=== PATIENT | male | born 1945 | race Caucasian/White ===

== ENCOUNTER 2022-04-23 20:45 | Outpatient (CLI) | payer MEDICARE, BC, SELFPAY | END 2022-04-23 20:46 | disposition home or self-care (01) | LOC: AMB 04-27 17:53 | PROVIDERS: PCP Surgery; Visit Provider Family Medicine | DX: R41.82 Altered mental status, unspecified (principal) | CPT/HCPCS: A0998 ==

== ENCOUNTER 2022-05-04 14:15 | Outpatient (CLI) | payer MEDICARE, BC, SELFPAY ==
--- NOTE | 2022-05-04 14:30 | CRLHL7_ITS ---
For Patients: As a result of the Cures Act, medical imaging exams and procedure reports are released immediately into your electronic medical record. You may view this report before your referring provider. If you have questions, please contact your health care provider. INDICATION: Transient alteration of awareness. TECHNIQUE: Brain MRI without contrast. The following sequences were obtained: Sagittal T1 weighted sequence. DWI and ADC mapping sequences. Axial FLAIR and KRISTEL T2 weighted sequences. COMPARISON: Brain MRI from 04/15/2020. FINDINGS: No evidence of acute ischemia. No evidence of acute or chronic intracranial blood products. Scattered FLAIR hyperintensities throughout the supratentorial white matter, typical for chronic microvascular ischemic change. No mass effect or herniation. Prominence of the lateral/3rd ventricles, especially the atria/occipital horns. Slight effacement of the cerebral sulci at the vertex. Normal pressure hydrocephalus should be considered in the appropriate clinical setting. The pituitary gland, parasellar structures and optic chiasm are normal. Posterior fossa is normal. All the major intracranial vascular structures demonstrate normal flow-related signal. The orbital contents are normal. No calvarial or skull base marrow replacing process. No obstructive sinus disease. No extracranial soft tissue findings. IMPRESSION: 1. No acute ischemia or other acute intracranial pathology. 2. Prominent/morphology of the lateral ventricles and effacement of the sulci at the vertex. Normal pressure hydrocephalus should be considered in the appropriate clinical setting. The more centralized cerebral atrophy could also result in this appearance. Stable since 2019 MRI brain. 3. Mild chronic microvascular ischemic changes. Dictated by Ricky Ness MD @ 05/04/2022 4:51:22 PM (Electronically Signed)
== END 2022-05-04 14:16 | disposition home or self-care (01) ==
PROVIDERS: PCP Surgery; Visit Provider Psychiatry & Neurology Neurology
DX: R40.4 Transient alteration of awareness (principal); I67.82 Cerebral ischemia; R94.02 Abnormal brain scan; M51.04 Intervertebral disc disorders with myelopathy, thoracic region; M51.36 Other intervertebral disc degeneration, lumbar region; G83.10 Monoplegia of lower limb affecting unspecified side
CPT/HCPCS: 70551

== ENCOUNTER 2023-04-05 07:30 | Day surgery (SDC) | payer MEDICARE, BC, SELFPAY ==
[2023-04-05] MEDS: KETOROLAC OPHTH 0.5% 1 DROP EYE-LEFT ×2 (07:45→07:50)
[2023-04-05] MEDS: TETRACAINE 0.5% OPHTH 1 DROP EYE-LEFT ×2 (07:45→07:50)
[2023-04-05 07:47] VITALS: BMI 28.2
[2023-04-05 08:04] VITALS: BP 163/85; PULSE 56; RESP 16; TEMP 36.6; O2SAT 95
[2023-04-05] MEDS: SODIUM CHLORIDE 0.9 % (FLUSH) 10 ML SYRINGE IVF (08:07)
--- NOTE | 2023-04-05 08:09 | SUR.PREOP ---
The eye drops brought by the patient (Ketorolac and Prednisolone) are examined and I have determined they are labeled by the patient's pharmacy for this patient as prescribed by the surgeon. The bottles are intact, recently obtained and appear to be correct.
--- NOTE | 2023-04-05 08:23 | W.ANESCHARGE ---
Anesthesia Charges Start Date/Time Anesthesia Start Date: 04/05/23 Anesthesia Start Time: 08:39 Stop Date/Time Anesthesia Stop Date: 04/05/23 Anesthesia Stop Time: 09:15 Summary Extremes of Age - Over 70 or under 1: MDA
--- NOTE | 2023-04-05 08:43 | SUR.OPER ---
Verbal from Dr. Oliveira for lens change to 18.5 D
[2023-04-05] MEDS: TETRACAINE 0.5% OPHTH 2 DROP EYE-LEFT (08:48)
[2023-04-05] MEDS: BALANCED SALT IRRIG SOLN 15 ML EYE-LEFT (08:48)
--- NOTE | 2023-04-05 09:13 | W.ANESCHARGE ---
Anesthesia Charges Start Date/Time Anesthesia Start Date: 04/05/23 Anesthesia Start Time: 08:39 Stop Date/Time Anesthesia Stop Date: 04/05/23 Anesthesia Stop Time: 09:15
[2023-04-05 09:17] VITALS: BP 131/80; PULSE 55; RESP 16; TEMP 36.6; O2SAT 98
--- NOTE | 2023-04-05 10:01 | P.OPTPRC_ITS ---
Procedure Note Date of procedure: 04/05/23 Will [facility] bill your pro fee for this procedure?: Yes Procedure Description: SURGEON: Dulce Oliveira MD PREOPERATIVE DIAGNOSIS: Nuclear sclerotic cataract, left eye. POSTOPERATIVE DIAGNOSIS: Nuclear sclerotic cataract, left eye. NAME OF OPERATION: Phacoemulsification of cataract with posterior chamber intraocular lens implantation in the left eye. ANESTHESIA: Topical. ESTIMATED BLOOD LOSS: Less than 2 cc. COMPLICATIONS: None. PATHOLOGY SPECIMEN: None. INDICATIONS: See consult note for details. The risks, benefits and alternatives of the procedure were explained to the patient, who elected to proceed and signed informed consent to do so. PROCEDURE: The patient was brought to the pre-holding area where the left eye was identified as the operative eye. I placed my initials above this eye. The patient received eye drops consisting of 0.5% tetracaine, 1% tropicamide, 10% phenylephrine, and 0.5% ketorolac. The patient was then brought to the operating room where the left eye was again identified as the operative eye. The eye was prepped with Betadine and draped in the usual sterile ophthalmic fashion. A #15 super-sharp blade was used to create a paracentesis site. 1% non-preserved intracameral lidocaine was injected into the anterior chamber. Endocoat was injected into the anterior chamber. A 2.4 mm keratome was used to create a three-plane self-sealing incision 1 mm anterior to the temporal limbus. A cystotome was used to create an anterior capsular leaflet. The Utrata forceps were used to extend this to form a continuous curvilinear capsulorrhexis. Hydrodissection was performed. The cataract was removed with phacoemulsification using the [id number] technique. The irrigation and aspiration tip was used to remove the remaining cortex. Healon was injected into the capsular bag. An THIERRY ZCB00 intraocular lens of 18.5 diopters was injected into the capsular bag. The irrigation and aspiration tip was used to remove the remaining viscoelastic. Balanced salt solution on a cannula was used to hydrate the wound, and the wound was found to be watertight. The pupil was noted to be round. please note it was determined pre op to change to the 18.5 diopter lens DISPOSITION: The patient was taken to the recovery room and discharged to home in stable condition. The patient was instructed to call me or go to the emergency department with any sudden change, including dramatic loss of vision, severe pain in the eye or eyebrow region, nausea, or vomiting. The patient will follow up in the clinic tomorrow morning.
== END 2023-04-05 09:54 | disposition home or self-care (01) ==
PROVIDERS: PCP Surgery; Visit Provider Ophthalmology
PROC: (CPT 66984; principal; 2023-04-05 07:30)
DX: H25.12 Age-related nuclear cataract, left eye (principal)
CPT/HCPCS: 66984; 00142; 99100; A9270; J2250; J3010; V2632

== ENCOUNTER 2023-04-26 07:31 | Day surgery (SDC) | payer MEDICARE, BC, SELFPAY ==
[2023-04-26] MEDS: TETRACAINE 0.5% OPHTH 1 DROP EYE-RIGHT ×2 (07:50→07:56)
[2023-04-26] MEDS: KETOROLAC OPHTH 0.5% 1 DROP EYE-RIGHT ×2 (07:53→07:59)
[2023-04-26] MEDS: SODIUM CHLORIDE 0.9 % (FLUSH) 10 ML SYRINGE IVF (07:55)
[2023-04-26 08:01] VITALS: BP 146/87; PULSE 58; RESP 16; TEMP 36.6; O2SAT 97; BMI 28.3
[2023-04-26] MEDS: TETRACAINE 0.5% OPHTH 2 DROP EYE-RIGHT (08:49)
[2023-04-26] MEDS: BALANCED SALT IRRIG SOLN 15 ML EYE-RIGHT (08:54)
--- NOTE | 2023-04-26 09:00 | W.ANESCHARGE ---
Anesthesia Charges Start Date/Time Anesthesia Start Date: 04/26/23 Anesthesia Start Time: 08:47 Stop Date/Time Anesthesia Stop Date: 04/26/23 Anesthesia Stop Time: 09:36 Summary Extremes of Age - Over 70 or under 1: MDA
--- NOTE | 2023-04-26 09:39 | W.ANESCHARGE ---
Anesthesia Charges Start Date/Time Anesthesia Start Date: 04/26/23 Anesthesia Start Time: 08:47 Stop Date/Time Anesthesia Stop Date: 04/26/23 Anesthesia Stop Time: 09:36 Summary Extremes of Age - Over 70 or under 1: [employer]IAN
[2023-04-26 09:47] VITALS: BP 141/87; PULSE 56; RESP 16; TEMP 36.3; O2SAT 95
--- NOTE | 2023-04-26 11:57 | W.PM.OPTPROC ---
Procedure Note Date of procedure: 04/26/23 Will [facility] bill your pro fee for this procedure?: Yes Procedure Description: SURGEON: Dulce Oliveira MD PREOPERATIVE DIAGNOSIS: Nuclear sclerotic cataract, right eye. POSTOPERATIVE DIAGNOSIS: Nuclear sclerotic cataract, right eye. NAME OF OPERATION: Phacoemulsification of cataract with posterior chamber intraocular lens implantation in the right eye. ANESTHESIA: Topical. ESTIMATED BLOOD LOSS: Less than 2 cc. COMPLICATIONS: None. PATHOLOGY SPECIMEN: None. INDICATIONS: See consult note for details. The risks, benefits and alternatives of the procedure were explained to the patient, who elected to proceed and signed informed consent to do so. PROCEDURE: The patient was brought to the pre-holding area where the right eye was identified as the operative eye. I placed my initials above this eye. The patient received eye drops consisting of 0.5% tetracaine, 1% tropicamide, 10% phenylephrine, and 0.5% ketorolac. The patient was then brought to the operating room where the right eye was again identified as the operative eye. The eye was prepped with Betadine and draped in the usual sterile ophthalmic fashion. A #15 super-sharp blade was used to create a paracentesis site. 1% non-preserved intracameral lidocaine was injected into the anterior chamber. Endocoat was injected into the anterior chamber. A 2.4 mm keratome was used to create a three-plane self-sealing incision 1 mm anterior to the temporal limbus. A cystotome was used to create an anterior capsular leaflet. The Utrata forceps were used to extend this to form a continuous curvilinear capsulorrhexis. Hydrodissection was performed. The cataract was removed with phacoemulsification using the [id number]-[id number] technique. The irrigation and aspiration tip was used to remove the remaining cortex. Healon was injected into the capsular bag. An THIERRY ZCB00 intraocular lens of 18.0 diopters was injected into the capsular bag. The irrigation and aspiration tip was used to remove the remaining viscoelastic. Balanced salt solution on a cannula was used to hydrate the wound, however the wound was not watertight. Miostat was injected into the anterior chamber. A 10-0 suture was placed in the incision and the wound was watertight. The pupil was noted to be round. DISPOSITION: The patient was taken to the recovery room and discharged to home in stable condition. The patient was instructed to call me or go to the emergency department with any sudden change, including dramatic loss of vision, severe pain in the eye or eyebrow region, nausea, or vomiting. The patient will follow up in the clinic tomorrow morning.
== END 2023-04-26 10:26 | disposition home or self-care (01) ==
PROVIDERS: PCP Surgery; Visit Provider Ophthalmology
PROC: (CPT 66984; principal; 2023-04-26 07:30)
DX: H25.11 Age-related nuclear cataract, right eye (principal)
CPT/HCPCS: 66984; 00142; 99100; A9270; J2250; J3010; V2632